=== PATIENT | female | born 1965 | race Caucasian/White ===

== ENCOUNTER → 2016-12-07 | Outpatient (CLI) | payer OTHER | LOC: FIMAGING 09:28 | DX: Z12.31 Encounter for screening mammogram for malignant neoplasm of breast (principal) | CPT/HCPCS: G0202 ==

== ENCOUNTER 2017-04-20 10:29 | Emergency (ER) | payer OTHER ==
[2017-04-20] MEDS ORDERED: NS 1,000 ML IV ONE (10:40)
--- NOTE | 2017-04-20 10:41 | EDPHY ---
HPI/HX/ROS/PE/MDM Narrative: CHIEF COMPLAINT: Nausea, vomiting, abdominal pain HPI: This patient is a 51 year old female arriving with her complaining of abdominal pain, vomiting, and diarrhea last night onset around midnight. She woke with a sharp pain in her left side and began vomiting. She vomited multiple times, and then had several episodes of diarrhea as well. She noted her bowel movement eventually became very watery and was primarily composed of bright red blood. She was able to control her vomiting and diarrhea, but her pain remained. She tried using a heating pad with little relief. Around 9:30, she began to feel very nauseous again and note increased abdominal cramping and decided to present for evaluation. She denies any abnormal food intake, and had prime rib for dinner and cookie dough ice cream. Her had the same food, and is currently asymptomatic. She denies history of abdominal surgeries or kidney stones. She has never had a colonoscopy, but is scheduled for her first in May, next month. No fever, urinary complaints, or other associated symptoms. REVIEW OF SYSTEMS: Aside from elements discussed in the HPI, a comprehensive 10-point review of systems was reviewed and is negative. PMH: Denies pertinent past medical history. Hernia surgery at 8 y/o. SOCIAL HISTORY: . at bedside. Lives in [place]. PHYSICAL EXAM: General:Patient is alert, in no acute distress. ENT:Eyes are normal to inspection. ENT inspection normal. Neck: Normal inspection. Full range of motion. Respiratory:No respiratory distress. Breath sounds normal bilaterally. Cardiovascular: Regular rate and rhythm. Strong peripheral pulses. Normal cap refill. Abdomen:The abdomen is nontender to palpation. There are no peritoneal signs. There are normal bowel sounds. Back: Normal to inspection. No tenderness to palpation. Skin: Normal color. No rash. Warm and dry. Extremities: Normal appearance. Full range of motion. Neuro: Oriented x3. Normal motor function. Normal sensory function. ED Course: 51 year old female presents with left-sided abdominal pain, vomiting, and bloody diarrhea onset around midnight last night. Physical exam unremarkable. Plan for labs including CBC, BMP, UA, PTPTT, and occult blood if a stool sample can be obtained. Plan for CT abdomen/pelvis. She declines pain or nausea medication at this time. IV established. Administered 1L IV NS for rehydration. 12:[address] Wright, radiologist. CT shows coelitis in the distal hemicolon. The patient's white blood cell count is elevated at 14. Occult blood in stool sample is positive. 12:[address] Samson, multimedia assistant. He will consult. 12:55 Dr. Samson at bedside. He is comfortable with her following up for outpatient endoscopy tomorrow at 2:30. Reassessed patient. She is feeling comfortable with discharge home. Follow up and return precautions discussed. She is comfortable with this plan. MDM: This patient presents with abdominal pain and hematochezia found to be secondary to likely colitis. GI has consulted and will arrange for outpatient scope. I see no evidence of bowel obstruction, bowel perforation, diverticulitis, or hemorrhagic shock. - Data Points Imaging Results: Imaging Impressions Abdomen CT 04/20/17 10:41 Impression: 1. Extensive colitis involving the distal colon from the mid transverse colon through the descending and sigmoid colon with a differential diagnosis of ulcerative colitis versus infectious/inflammatory colitis. Ischemic colitis is less likely due to lack of atherosclerotic aorta. 2. Hepatic and splenic cysts without solid masses 3. No bowel obstruction or pneumoperitoneum. 4. Recommend follow-up colonoscopy. Findings and recommendations discussed with Emergency Department physician, Rob Cole MD, at 1233 hours, 04/20/2017. Final report concurs with initial preliminary interpretation. Laboratory Results: Laboratory Results 04/20/17 10:47 04/20/17 10:47 04/20/17 04/20/17 04/20/17 11:20 10:47 10:47 WBC RBC Hgb Hct MCV MCH MCHC RDW Plt Count MPV Neut % (Auto) Lymph % (Auto) Loup % (Auto) Eos % (Auto) Baso % (Auto) Nucleat RBC Rel Count Absolute Neuts (auto) Absolute Lymphs (auto) Absolute Monos (auto) Absolute Eos (auto) Absolute Basos (auto) Absolute Nucleated RBC Immature Gran % Immature Gran # PT 13.9 SEC SEC (12.0-15.0) INR 1.08 (0.83-1.16) APTT 21.8 SEC L SEC (23.0-38.0) Sodium 143 mEq/L mEq/L (134-144) Potassium 4.2 mEq/L mEq/L (3.5-5.2) Chloride 103 mEq/L mEq/L (97-110) Carbon Dioxide 23 mEq/l mEq/l (22-31) Anion Gap 17 mEq/L H mEq/L (8-16) BUN 13 mg/dL mg/dL (7-23) Creatinine 0.7 mg/dL mg/dL (0.6-1.0) Estimated GFR > 60 Glucose 111 mg/dL H mg/dL (70-100) Calcium 10.3 mg/dL mg/dL (8.5-10.4) Stool Occult Bld Scrn POSITIVE H (NEGATIVE) 04/20/17 10:47 WBC 14.24 10^3/uL H 10^3/uL (3.80-9.50) RBC 4.59 10^6/uL 10^6/uL (4.18-5.33) Hgb 15.5 g/dL g/dL (12.6-16.3) Hct 45.9 % % (38.0-47.0) MCV 100.0 fL H fL (81.5-99.8) MCH 33.8 pg pg (27.9-34.1) MCHC 33.8 g/dL g/dL (32.4-36.7) RDW 12.8 % % (11.5-15.2) Plt Count 255 10^3/uL 10^3/uL (150-400) MPV 10.3 fL fL (8.7-11.7) Neut % (Auto) 92.1 % H % (39.3-74.2) Lymph % (Auto) 6.0 % L % (15.0-45.0) Loup % (Auto) 1.4 % L % (4.5-13.0) Eos % (Auto) 0.0 % L % (0.6-7.6) Baso % (Auto) 0.1 % L % (0.3-1.7) Nucleat RBC Rel Count 0.0 % % (0.0-0.2) Absolute Neuts (auto) 13.11 10^3/uL H 10^3/uL (1.70-6.50) Absolute Lymphs (auto) 0.85 10^3/uL L 10^3/uL (1.00-3.00) Absolute Monos (auto) 0.20 10^3/uL L 10^3/uL (0.30-0.80) Absolute Eos (auto) 0.00 10^3/uL L 10^3/uL (0.03-0.40) Absolute Basos (auto) 0.02 10^3/uL 10^3/uL (0.02-0.10) Absolute Nucleated RBC 0.00 10^3/uL 10^3/uL (0-0.01) Immature Gran % 0.4 % % (0.0-1.1) Immature Gran # 0.06 10^3/uL 10^3/uL (0.00-0.10) PT INR APTT Sodium Potassium Chloride Carbon Dioxide Anion Gap BUN Creatinine Estimated GFR Glucose Calcium Stool Occult Bld Scrn Medications Given: Discontinued Medications Sodium Chloride (Ns) 1,000 mls @ 0 mls/hr IV EDNOW ONE; Wide Open PRN Reason: Protocol Stop: 04/20/17 10:41 Last Admin: 04/20/17 10:52 Dose: 1,000 mls General Time Seen by Provider: 04/20/17 10:35 Initial Vital Signs: Initial Vital Signs Temperature (C) 36.7 C 04/20/17 10:30 Heart Rate 85 04/20/17 10:30 Respiratory Rate 16 04/20/17 10:30 Blood Pressure 120/87 H 04/20/17 10:30 O2 Sat (%) 99 04/20/17 10:30 O2 Delivery Mode Room Air Allergies/Adverse Reactions: No Known Allergies Allergy (Unverified 04/20/17 10:34) Departure - Departure Disposition: Home, Routine, Self-Care Clinical Impression: Colitis Condition: Good Instructions: Colitis (ED) Additional Instructions: 1. Follow up with Dr. Samson's office tomorrow as an outpatient for endoscopy as discussed. Your appointment will be at 2:30pm with Dr. England, multimedia assistant. The office should contact you for further information. 2. Return to the emergency department for uncontrollable vomiting or diarrhea, fever, severe abdominal pain, or other worsening of condition. Referrals: Antonieta Machuca MD [Primary Care Provider] - As per Instructions Kale Samson MD [Medical Doctor] - As per Instructions Micaela England MD [Medical Doctor] - As per Instructions Report Scribed for: Rob Cole Report Scribed by: Kassy Azar Date of Report: 04/20/17 Time of Report: 10:40 Physician Review and Approval Statement: Portions of this note were transcribed by an ED scribe. I personally performed the history, physical exam, and medical decision making; and confirm the accuracy of the information in the transcribed note.
[2017-04-20 10:54] LABS: % IMMATURE GRANULYOCYTES 0.4 % (0.0-1.1); ABSOLUTE IMMATURE GRANULOCYTES 0.06 10^3/uL (0.00-0.10); ADD DIFF? NO; ADD MORPH? NO; ADD SCAN? NO; ATYPICAL LYMPHOCYTE FLAG 20 (0-99); FRAGMENT RBC FLAG 0 (0-99); HEMATOCRIT 45.9 % (38.0-47.0); HEMOGLOBIN 15.5 g/dL (12.6-16.3); LEFT SHIFT FLG 0 (0-99); LIPEMIA HEMOLYSIS FLAG 90 (0-99); MEAN CELL HEMOGLOBIN 33.8 pg (27.9-34.1); MEAN CELL HEMOGLOBIN CONCENTR. 33.8 g/dL (32.4-36.7); MEAN PLATELET VOLUME 10.3 fL (8.7-11.7); PLATELET CLUMPS FLAG 0 (0-99); PLATELET COUNT 255 10^3/uL (150-400); RED BLOOD CELL COUNT 4.59 10^6/uL (4.18-5.33); RED CELL DISTRIBUTION WIDTH 12.8 % (11.5-15.2)
[2017-04-20 11:08] LABS: INR 1.08 (0.83-1.16); PROTIME(PATIENT) 13.9 SEC (12.0-15.0)
[2017-04-20 11:09] LABS: APTT 21.8 SEC (23.0-38.0)
[2017-04-20 11:17] LABS: ANION GAP 17 mEq/L (8-16); CALCIUM 10.3 mg/dL (8.5-10.4); CARBON DIOXIDE 23 mEq/l (22-31); CHLORIDE 103 mEq/L (97-110); CREATININE 0.7 mg/dL (0.6-1.0); GLOMERULAR FILTRATION RATE > 60; GLUCOSE 111 mg/dL (70-100); POTASSIUM 4.2 mEq/L (3.5-5.2); SODIUM 143 mEq/L (134-144)
[2017-04-20] MEDS ORDERED: IOPAMIDOL (ISOVUE-300) 100 ML BTL ONE (11:41)
[2017-04-20 13:28] VITALS: BP 123/80; PULSE 84; RESP 18; O2SAT 97
[2017-04-20 13:35] VITALS: TEMP 98.6
--- NOTE | 2017-04-20 15:26 | GCON ---
[f rep st] CONSULTATION CHIEF COMPLAINT: A 51-year-old woman site with abdominal pain, diarrhea, and hematochezia. REASON FOR CONSULTATION: I have been asked to see this patient in consultation for abdominal pain, d iarrhea and hematochezia. HISTORY OF PRESENT ILLNESS: The patient is a very pleasant 51-year-old woman, [facility] onset of abdominal pain. She has no other significant medical his tory. She has been on hormone replacement therapy. She woke up last evening feeling as though she h ad to go to the bathroom. She had some associated crampy abdominal pain and several episodes of diar lexie. She noted some bright red blood per rectum. She denies any fevers or chills. She had no ligh theadedness, dizziness. She has not had previous symptoms. She has not had a previous colonoscopy. She had been scheduled for a screening colonoscopy some time later this year. She has a family hist ory of colorectal cancer in a maternal uncle who was in his 70s. She presented to the emergency depa rtment. She had a CT scan that showed extensive colitis involving the distal colon, from the mid tra nsverse colon through the descending colon and sigmoid colon were. She also had some small hepatic a nd splenic cysts. Otherwise no significant abnormalities. She was hemodynamically stable with a nor mal blood pressure and pulse. Laboratory data revealed a slightly elevated white count of 14.24 with a normal hemoglobin of 15.5 and hematocrit 45.9. Her MCV is 100. Serum chemistries were normal. N ormal BUN of 13, creatinine 0.7. I was asked to see patient for further evaluation. PAST MEDICAL HISTORY: Negative. PAST SURGICAL HISTORY: Negative. FAMILY HISTORY: As above. Maternal uncle with colon cancer in his 70s. SOCIAL HISTORY: Nondrinker and nonsmoker. MEDICATIONS: Prior to admission only include hormone replacement therapy. ALLERGIES: She has no known drug allergies. REVIEW OF SYSTEMS: Negative 10 systems other than mentioned in HPI. PHYSICAL EXAMINATION: VITAL SIGNS: Blood pressure is 120/87, heart rate of 85, respiratory rate 16, 99% sat, 36.7. GENERAL: Very pleasant woman in no acute distress. Lying in a stretcher. HEENT: Normocephalic, atr aumatic. EOMI. NECK: Supple. No cervical adenopathy. Mucous membranes moist. LUNGS: Clear. CA RDIAC: Normal S1, S2 without murmur. ABDOMEN: Soft. Normal bowel sounds. Tenderness to palpation in the left abdomen. EXTREMITIES: Without clubbing, cyanosis, edema. SKIN: Warm, dry, intact. N EURO: Nonfocal. Cranial nerves 2-12 intact. PSYCH: Normal affect. LABORATORY: Serum sodium 143, potassium 4.2, chloride of 103, CO2 23, BUN 13, creatinine 0.7. PT of 13.9, INR of 1.08 and PTT of 21.8. White count of 14.24, hemoglobin 15.5, hematocrit 45.9, MCV of 1 00. IMPRESSION: A 51-year-old woman with acute onset of abdominal pain, diarrhea and hematochezia. Clin ical presentation is most consistent with acute ischemic colitis. Patient is on hormone replacement therapy. Clinical presentation is less consistent with infectious etiology but possible. Also in e differential could be inflammatory bowel disease. However again this is an unusual presentation. RECOMMENDATIONS: Patient is hemodynamically stable and stable for discharge. The patient will be di scharged on a clear liquid diet. Will be prepped with for colonoscopy for tomorrow. She is schedule d for tomorrow afternoon as an outpatient. She was instructed to return to the hospital if she has a ny worsening abdominal pain, fevers, chills, nausea, vomiting, worsening hematochezia or light-headed ness. Thank you for allowing me to participate in the care of this patient. /[id number]/MODL
== END 2017-04-20 13:31 | disposition home or self-care (01) ==
DX: K52.9 Noninfective gastroenteritis and colitis, unspecified (principal); E86.9 Volume depletion, unspecified
CPT/HCPCS: Q9967

== ENCOUNTER → 2017-12-12 | Outpatient (CLI) | payer OTHER | LOC: FIMAGING 08:42 | PROVIDERS: ATTEND Physician Assistant Medical | DX: Z12.31 Encounter for screening mammogram for malignant neoplasm of breast (principal) ==

== ENCOUNTER → 2019-01-23 | Outpatient (CLI) | payer OTHER | LOC: FIMAGING 08:11 ==